=== PATIENT | male | born 1955 | race Hispanic/Latino ===

== ENCOUNTER → 2021-06-02 | Day surgery (SDC) | payer MEDICARE ==
[2021-05-31 08:32] LABS: BASOPHILS % 0.6 % (0.0-1.0); EOSINOPHILS # (AUTO) 0.2 (0.0-0.4); HEMATOCRIT 37.5 % (38.2-49.6); HEMOGLOBIN 12.8 g/dL (14.0-18.0); LYMPHOCYTES # (AUTO) 2.4 (1.0-3.2); MEAN CORPUSCULAR HEMOGLOBIN 31.4 pg (28-32); MEAN CORPUSCULAR HGB CONC 34.1 g/dL (31-35); MEAN CORPUSCULAR VOLUME 91.9 fL (81-99); MONOCYTES # (AUTO) 0.6 (0.2-0.8); MONOCYTES % 8.8 % (4.4-11.3); NEUTROPHILS # (AUTO) 3.1 (2.1-6.9); NEUTROPHILS % 49.1 % (38.7-80.0); PLATELET COUNT 164 x10e3/uL (140-360); RED BLOOD COUNT 4.08 x10e6/uL (4.3-5.7); RED CELL DISTRIBUTION WIDTH 12.1 % (11.7-14.4)
[2021-05-31 08:59] LABS: ALBUMIN 3.9 g/dL (3.5-5.0); ALBUMIN/GLOBULIN RATIO 1.1 (0.8-2.0); ANION GAP 14.7 mmol/L (8-16); CALCIUM 9.2 mg/dL (8.4-10.2); CREATININE, SERUM 0.78 mg/dL (0.72-1.25); POTASSIUM 4.7 mmol/L (3.5-5.1)
[~2021-06-02] MED LIST: ATORVASTATIN CA20 MG PO; BUPIVACAINE 0.25% 30ML SDV ONE; ETODOLAC300 MG PO; LIDOCAINE 1% W/EPINEPHRINE 20 ML VIAL ONE; METFORMIN HCL500 MG PO; NEURONTIN400 MG PO; TRAZODONE HCL100 MG PO; VASOTEC10 MG PO; VICODIN HP 10-1 EAC1 PO
[2021-06-02 12:05] VITALS: BP 170/87
== END | disposition home or self-care (01) ==
LOC: OR 06:34
PROVIDERS: ATTEND Surgery
DX: L72.0 Epidermal cyst (principal); G89.29 Other chronic pain; I10 Essential (primary) hypertension; E11.9 Type 2 diabetes mellitus without complications; Z01.810 Encounter for preprocedural cardiovascular examination; Z01.812 Encounter for preprocedural laboratory examination; Z01.818 Encounter for other preprocedural examination; Z20.822 Contact with and (suspected) exposure to COVID-19; Z79.84 Long term (current) use of oral hypoglycemic drugs
CPT/HCPCS: 21931; 36415 ×2; 71046; 80053; 82948; 85025; 88304; 93005; U0002